=== PATIENT | female | born 1955 | race Caucasian/White ===

== ENCOUNTER 2022-05-03 14:51 | Outpatient (CLI) | payer OTHER, SELFPAY ==
--- NOTE | 2022-05-03 15:00 | CRLHL7_ITS ---
For Patients: As a result of the Cures Act, medical imaging exams and procedure reports are released immediately into your electronic medical record. You may view this report before your referring provider. If you have questions, please contact your health care provider. BILATERAL SCREENING MAMMOGRAM WITH COMPUTER-AIDED DETECTION AND TOMOSYNTHESIS TECHNIQUE: CC and MLO views were obtained. These mammographic images have been obtained using full-field digital technique. These mammographic images were interpreted with the benefit of computer-aided detection. Breast tomosynthesis was used in this interpretation. COMPARISON FILM: 05/01/21, 04/20/20, 02/10/19. FINDINGS: There are scattered areas of fibroglandular density. IMPRESSION: There is no radiographic evidence for malignancy. ASSESSMENT: BI-RADS Category 2: Benign RECOMMENDATION: Routine screening mammogram in 1 year. A lay language report of this examination will be provided to the patient. BOY HICKMAN M.D. Diagnostic Radiologist [email or web address] Transcribed: 05/04/2022, 1:[address]/Dictated by: Boy Hickman MD @ 05/04/2022 8:20:00 AM (Electronically Signed)
== END 2022-05-03 14:52 | disposition home or self-care (01) ==
LOC: MAMMO 14:51
PROVIDERS: PCP Internal Medicine; Visit Provider Internal Medicine
DX: Z12.31 Encounter for screening mammogram for malignant neoplasm of breast (principal)
CPT/HCPCS: 77063; 77067

== ENCOUNTER 2023-06-04 13:54 | Outpatient (CLI) | payer OTHER, SELFPAY ==
--- NOTE | 2023-06-04 14:00 | MM_ITS ---
Patient: HARSHAD GUTIÉRREZ Facility:?[facility] Patient ID:?[id number] Site Patient ID:?[id number]. Site :?[id number] Study:?XRay-Breast Bilateral 3D screening mammogram w/cad-06/04/2023 2:23:17 PM Ordering Physician:NATANAEL Final Report: BILATERAL SCREENING MAMMOGRAM WITH COMPUTER-AIDED DETECTION AND TOMOSYNTHESIS TECHNIQUE: CC and MLO views were obtained. These mammographic images have been obtained using full-field digital technique. These mammographic images were interpreted with the benefit of computer-aided detection. Breast Tomosynthesis was used in this interpretation. COMPARISON FILM: 05/03/22, 05/01/21, 04/20/20. FINDINGS: There are scattered areas of fibroglandular density. IMPRESSION: There is no radiographic evidence for malignancy. ASSESSMENT: BI-RADS Category 2: Benign RECOMMENDATION: Routine screening mammogram in 1 year. A lay language report of this examination will be provided to the patient. Boy Arambula M.D. Diagnostic Radiologist [email or web address] DSM/sp R& Transcribed: 4:38 p.m. SP/Dictated by: Boy Arambula MD @ 06/05/2023 11:38:00 AM Signed by:?Boy Arambula MD @06/06/2023 5:40:41 AM (Electronic Signature)
== END 2023-06-04 13:55 | disposition home or self-care (01) ==
LOC: MAMMO 13:55
PROVIDERS: PCP Family Medicine; Visit Provider Internal Medicine
DX: Z12.31 Encounter for screening mammogram for malignant neoplasm of breast (principal)
CPT/HCPCS: 77063; 77067

== ENCOUNTER 2023-11-22 08:33 | Outpatient (CLI) | payer OTHER, SELFPAY | END 2023-11-22 08:34 | disposition home or self-care (01) | LOC: NFLDREF 10:55 | PROVIDERS: PCP Internal Medicine; Referring Provider Internal Medicine; Visit Provider Internal Medicine | DX: Z13.1 Encounter for screening for diabetes mellitus (principal); Z13.6 Encounter for screening for cardiovascular disorders; Z13.29 Encounter for screening for other suspected endocrine disorder | CPT/HCPCS: 80061; 82947; 84443 ==

== ENCOUNTER 2023-12-18 10:53 | Outpatient (CLI) | payer OTHER, SELFPAY ==
--- OUTSIDE RECORDS SUMMARY | 2023-12-18 10:55 | XMS_ITS | Clinical Summary ---
Author Organization [facility] Address [address] [place] [id number] Care Team Providers Care Websphere Consultant Name Role Phone Unavailable Primary Care Provider Unavailabl e Source Comments Patient records contain information from all sites at [facility]. For routine questions regarding patient records, call [phone] during business hours, M-F 8:00 AM - 5:00 PM Central Time. Record requests for emergency care only can be directed to [phone] at any time.[facility] Allergies No known active allergies Medications Medication Sig Dispensed Refills Start Date End Date Status mupirocin (BACTROBAN) 2 % ointment APPLY TO WOUND ON FACE 1-2X DAILY AND COVER WITH BANDAGE UNTIL WELL HEALED 05/15/2022 Active traMADoL (ULTRAM) 50 mg tabletIndications:Acu te Pain Take 1 tablet (50 mg total) by mouth every 6 (six) hours as needed for pain Indications: Acute Pain. 5 tablet 06/07/2022 Active Hospital, Clinic, or Other Facility Administered Medication Ordered Dose Route Frequency Start Date End Date Status lidocaine-EPINEPHrine 1%-1:200,000 injection 2-50 mL (XYLOCAINE W/EPI)Indications:Melanoma Face (HCC) 2 - 50 mL inj As needed 06/07/2022 Active UEZagqackxn-ybsyelulr-CDECRVC rine 0.25%-1%-1:200,000 injection 2-25 mLIndications:Melanoma Face (HCC) 2 - 25 mL inj As needed 06/07/2022 Active Active Problems Problem Noted Date Diagnosed Date Melanoma Face 07/10/2022 Melanoma Malignant Other Parts Face 05/31/2022 Social History Tobacco Use Types Packs/Day Years Used Date Smoking Tobacco: Never Assessed Humiliation, Afraid, Rape, and Kick questionnair e Answer Date Recorded Within the last year, have y ou been afraid of your partner or ex-partner? No 05/29/2022 Within the last year, have y ou been humiliated or emotionally abused in other ways by your partner or ex-partner? No Within the last year, have y ou been kicked, hit, slapped, or otherwise physically hurt by your partner or ex-partner? No 05/29/2022 Within the last year, have y ou been raped or forced to have any kind of sexual activity by your partner or ex-partner? No 05/29/2022 Social Connection and Isolat ion Panel [NHANES] Answer Date Recorded In a typical week, how many times do you talk on the phone with family, friends, or neighbors? More than three times a week 05/29/2022 How often do you get togethe r with friends or relatives? More than three times a week 05/29/2022 How often do you attend [facility] or scientology services? More than 4 times per year 05/29/2022 Do you belong to any clubs o r organizations such as adventism groups, unions, fraternal or athletic groups, or school groups? Yes 05/29/2022 How often do you attend meet ings of the clubs or organizations you belong to? More than 4 times per year 05/29/2022 Are you , , di vorced, , never , or living with a partner? 05/29/2022 AUDIT-C Answer Date Recorded Q1: How often do you have a drink containing alc ohol? 2-4 times a month 05/29/2022 Q2: How many drinks containi ng alcohol do you have on a typical day when you are drinking? 1 or 2 05/29/2022 Q3: How often do you have si x or more drinks on one occasion? Never 05/29/2022 Overall Financial Resource Strain (CARDIA) Answe r Date Recorded How hard is it for you to pa y for the very basics like food, housing, medical care, and heating? Not hard at all 05/29/2022 [facility] of Occupat ional Health - Occupational Stress Questionnaire Answer Date Recorded Do you feel stress - tense, restless, nervous, or anxious, or unable to sleep at night because your mind is troubled all the time - these days? Only a little 05/29/2022 Exercise Vital Sign Answer Date Recorde d On average, how many days pe r week do you engage in moderate to strenuous exercise (like a brisk walk)? 6 days 05/29/2022 On average, how many minutes do you engage in exercise at this level? 30 min 05/29/2022 Hunger Vital Sign Answer Date Recorded Within the past 12 months, y ou worried that your food would run out before you got the money to buy more. Never true 05/30/19 Within the past 12 months, t he food you bought just didn't last and you didn't have money to get more. Never true 05/29/2022 PRAPARE - Transportation Answer Date Re corded In the past 12 months, has l ack of transportation kept you from medical appointments or from getting medications? No 09/2022 In the past 12 months, has l ack of transportation kept you from meetings, work, or from getting things needed for daily living? No 05/29/2022 Housing Stability Vital Sign Answer Trevor e Recorded In the last 12 months, was t here a time when you were not able to pay the mortgage or rent on time? No 05/29/2022 In the last 12 months, how many places have you lived? 1 05/29/2022 In the last 12 months, was t here a time when you did not have a steady place to sleep or slept in a usp (including now)? No 05/29/2022 Nutrition Answer Date Recorded Nutrition: EVOO Fat Source Yes 05/29 On average, how many serving s of fruits and vegetables do you eat per day (serving size is equal to 1 cup or approximately the size of a tennis ball)? 4-5 05/29/2022 Dental Answer Date Recorded Dental: Regular Dentist Yes 05/30/19 Employment Answer Date Recorded Employment status Employed and actively working without restrictions 05/29/2022 Education Answer Date Recorded What is the highest level of school you have completed or the highest degree you have received? 12th grade 05/29/2022 Sex and Gender Information Value Date Recorded Sex Assigned at Female 05/29/2022 11:38 AM COUNSELING SERVICES MANAGER Gender Identity Female 05/29/2022 11:38 AM COUNSELING SERVICES MANAGER Sexual Orientation Straight 05/29/2022 11 :38 AM COUNSELING SERVICES MANAGER Last Filed Vital Signs Vital Sign Reading Time Taken Comments Blood Pressure 142/81 06/07/2022 11:00 AM CDT Pulse 73 06/07/2022 11:00 AM CDT Temperature 36.6 ??C (97.9 ??F) 06/01/2022 6:10 PM CS T Respiratory Rate 18 06/01/2022 7:18 AM COUNSELING SERVICES MANAGER Oxygen Saturation 96% 06/01/2022 6:10 PM COUNSELING SERVICES MANAGER Inhaled Oxygen Concentration - - Weight 85.8 kg (189 lb 2.5 oz) 06/01/2022 7:18 A M COUNSELING SERVICES MANAGER Height 162.6 cm (5' 4) 06/01/2022 7:18 AM COUNSELING SERVICES MANAGER Body Mass Index 32.47 06/01/2022 7:18 AM COUNSELING SERVICES MANAGER Plan of Treatment Health Maintenance Due Date Last Done Comments Bone Density Scan (Osteoporo sis Screen) 1956 CT Colonography 1955 Cologuard 1955 Colonoscopy 1956 Colorectal Cancer Screening 1955 FIT 1956 Fasting Glucose for Diabetes Screening 1955 Hepatitis C Screening 1955 Mammogram 1955 Depression Screening (Annual PHQ-2) 03/25/2023 Fall Risk Screen (Annual) 03/25/2023 COVID-19 Vaccine ( - 2023-2 5 season) 2023 01/29/2023, 09/05/2021, 02/14/2021, Additional history exists Influenza Vaccine (#1) 2023 , 01/18/2022, 12/29/2020, Additional history exists DTaP,Tdap,and Td Vaccines (3 - Td or Tdap) 09/05/2031 09/04/2021, 11/08/2011, 10/16/2006 Zoster Vaccines Completed 10/17/2018, 05/24, 12/28/2011 Pneumococcal vaccine (65+ years) Completed 01/19/20
--- OUTSIDE RECORDS SUMMARY | 2023-12-18 10:55 | XMS_ITS | Referral Summary ---
Author Organization [facility] Address [address] [place] [address] Care Team Providers Care Asset Protection Representative Name Role Phone Unavailable Primary Care Provider Unavailabl e Source Comments Patient records contain information from all sites at [facility]. For routine questions regarding patient records, call [phone] during business hours, M-F 8:00 AM - 5:00 PM Central Time. Record requests for emergency care only can be directed to [phone] at any time.[facility] Allergies No known active allergies Medications [...] 50 mL inj As needed 06/07/2022 Active VNSigrjybss-bfmozvfjm-WVFCWMZ rine 0.25%-1%-1:200,000 injection 2-25 mLIndications:Melanoma Face (HCC) [...] week 05/29/2022 How often do you attend [facility] or restoration services? More than 4 times per year 05/29/2022 Do you belong to any clubs o r organizations such as zoroastrianism groups, unions, fraternal or athletic groups, or [...] and heating? Not hard at all 05/29/2022 [facility] of Occupat ional Health - Occupational Stress [...] place to sleep or slept in a fdc (including now)? No 05/29/2022 Nutrition Answer Date [...] Sex Assigned at Female 05/29/2022 11:38 AM DEPUTY SHERIFF/INVESTIGATOR Gender Identity Female 05/29/2022 11:38 AM DEPUTY SHERIFF/INVESTIGATOR Sexual Orientation Straight 05/29/2022 11 :38 AM DEPUTY SHERIFF/INVESTIGATOR Last Filed Vital Signs Vital Sign Reading Time Taken Comments Blood Pressure 142/81 06/07/2022 11:00 AM CDT Pulse 73 06/07/2022 11:00 AM CDT Temperature 36.6 ??C (97.9 ??F) 06/01/2022 6:10 PM CS T Respiratory Rate 18 06/01/2022 7:18 AM DEPUTY SHERIFF/INVESTIGATOR Oxygen Saturation 96% 06/01/2022 6:10 PM DEPUTY SHERIFF/INVESTIGATOR Inhaled Oxygen Concentration - - Weight 85.8 kg (189 lb 2.5 oz) 06/01/2022 7:18 A M DEPUTY SHERIFF/INVESTIGATOR Height 162.6 cm (5' 4) 06/01/2022 7:18 AM DEPUTY SHERIFF/INVESTIGATOR Body Mass Index 32.47 06/01/2022 7:18 AM DEPUTY SHERIFF/INVESTIGATOR Plan of Treatment Not on file
--- OUTSIDE RECORDS SUMMARY | 2023-12-18 10:55 | XMS_ITS ---
Author Organization [facility] Address [address] [place] [address] Care Team Providers Care Taker Off Name Role Phone Unavailable Unavailable Unavailable Surgery Details Not on file Complications Check Surgery Details section. Procedure Estimated Blood Loss Check Surgery Details section. Procedure Findings Check Surgery Details section. Procedure Specimens Taken Check Surgery Details section.
--- NOTE | 2023-12-18 11:00 | CRLHL7_ITS ---
For Patients: As a result of the Century Cures Act, medical imaging exams and procedure reports are released immediately into your electronic medical record. You may view this report before your referring provider. If you have questions, please contact your health care provider. DXA BONE MINERAL DENSITY STUDY Reason for exam: Asymptomatic menopausal state. Current height (in): 64. Weight (lb): 180. Menopause age: 56. Ethnicity: White. 1. Have you had a previous hip or vertebral fracture? No. 2. Have you had any fractures during your adult life which did not result from significant trauma (e.g., auto accident)? No. 3. Did either of your parents have a hip fracture? No. 4. Do you smoke? No. 5. Have you ever taken Glucocorticoids? No. 6. Do you have rheumatoid arthritis? No. 7. Do you have secondary osteoporosis? No. 8. Do you drink 3 or more alcoholic drinks per day? No. 9. Are you being treated for osteoporosis? No. 10. Have you ever taken any of the following medications: Actonel, Evista, Fosamax, Miacalcin, Reclast, Boniva, Forteo, HRT (i.e. estrogen/hormone therapy), Protelos, Prolia, Vitamin D, Calcium, other ??? please specify. ANSWER: Yes, HRT (i.e. estrogen/hormone therapy). 11. Do you have any of the following medical conditions: Anorexia or bulimia, asthma or emphysema, end stage renal disease, hyperparathyroidism, any seizure disorders, cancer, inflammatory bowel diseases, hysterectomy, other ??? please specify. ANSWER: No. 12. What was your maximum height (inches)? 64. 13. Do you perform weight bearing exercise regularly? Yes. 14. Do you regularly consume dairy products? Yes. 15. Do you drink caffeinated beverages? Yes. 16. At what age did your period start? 15. 17. Are you premenopausal? No. 18. How many full term pregnancies have you had? 3. 19. Have you ever missed your period for more than 6 months in a row (not including or menopause)? No. TECHNIQUE: Bone mineral density study was performed using the [employer]. FINDINGS: The results of the study expressed as bone mineral density (BMD) are as follows: Lumbar spine L1 to L4: BMD: 1.002 g/cm2. T-score: -0.4. Z-score: 1.5. Neck Left: BMD: 0.778 g/cm2. T-score: -0.6. Z-score: 1.0. Right: BMD: 0.728 g/cm2. T-score: -1.1. Z-score: 0.5. Total Left: BMD: 0.854 g/cm2. T-score: -0.7. Z-score: 0.6. Right: BMD: 0.906 g/cm2. T-score: -0.3. Z-score: 1.0. IMPRESSION: Osteopenia. FRAX 10-year Fracture Risk Major Osteoporotic Fracture: 8.2 percent Hip Fracture: 0.7 percent Reported Risk Factors: [place] () Neck BMD=0.728, BMI=30.9 GERALDO CONSTANTINO M.D. [email or web address] bM/Dictated by: Geraldo Constantino MD @ 12/19/2023 1:36:00 PM (Electronically Signed)
== END 2023-12-18 10:54 | disposition home or self-care (01) ==
LOC: RAD 10:54
PROVIDERS: PCP Internal Medicine; Visit Provider Internal Medicine
DX: Z78.0 Asymptomatic menopausal state (principal); M85.89 Other specified disorders of bone density and structure, multiple sites
CPT/HCPCS: 77080

== ENCOUNTER 2024-02-24 08:43 | Outpatient (CLI) | payer OTHER, SELFPAY ==
--- OUTSIDE RECORDS SUMMARY | 2024-02-25 19:57 | XMS_ITS | Referral Summary ---
Author Organization [facility] Address [address] [place] [address] Care Team Providers Care Rippler Name Role Phone Unavailable Primary Care Provider Unavailabl e Source Comments Patient records contain information from all sites at [facility]. For routine questions regarding patient records, call [phone] during business hours, M-F 8:00 AM - 5:00 PM Central Time. Record requests for emergency care only can be directed to [phone] at any time.[facility] Allergies No known active allergies Medications mupirocin (BACTROBAN) 2 % ointment APPLY TO WOUND ON FACE 1-2X DAILY AND COVER WITH BANDAGE UNTIL WELL HEALED 05/15/2022 Active traMADoL (ULTRAM) 50 mg tabletIndicatio ns:Acute Pain Take 1 tablet (50 mg total) by mouth every 6 (six) hours as needed for pain Indications: Acute Pain. 5 tablet 06/07/2022 Active Hospital, Clinic, or Other Facility Administered Medication Ordered Dose Route Frequency Start Date End Date Status lidocaine-EPINEPHrine 1%-1:200,000 injection 2-50 mL (XYLOCAINE W/EPI)Indications:Melanoma Face (HCC) 2 - 50 mL inj As needed 06/07/2022 Active JMCmlplrrcg-yoibxcyzt-URJZTIN rine 0.25%-1%-1:200,000 injection 2-25 mLIndications:Melanoma Face (HCC) [...] week 05/29/2022 How often do you attend [facility] or sikh services? More than 4 times per year 05/29/2022 Do you belong to any clubs o r organizations such as mormon groups, unions, fraternal or athletic groups, or [...] and heating? Not hard at all 05/29/2022 [facility] of Occupat ional Health - Occupational Stress [...] place to sleep or slept in a half-way (including now)? No 05/29/2022 Nutrition Answer Date Recorded On average, how many serving s of [...] degree you have received? 12th grade 05/29/2022 Comments No Sex and Gender Information Value Date Recorded Sex Assigned at Female 05/29/2022 11:38 AM BOIL OFF MACHINE OPERATOR CLOTH Legal Sex Female 8:55 AM CDT Gender Identity Female 05/29/2022 11:38 AM BOIL OFF MACHINE OPERATOR CLOTH Sexual Orientation Straight 05/29/2022 11 :38 AM BOIL OFF MACHINE OPERATOR CLOTH Last Filed Vital Signs Vital Sign Reading Time Taken Comments Blood Pressure 142/81 06/07/2022 11:00 AM CDT Pulse 73 06/07/2022 11:00 AM CDT Temperature 36.6 C (97.9 F) 06/01/2022 6:10 PM BOIL OFF MACHINE OPERATOR CLOTH Respiratory Rate 18 06/01/2022 7:18 AM BOIL OFF MACHINE OPERATOR CLOTH Oxygen Saturation 96% 06/01/2022 6:10 PM BOIL OFF MACHINE OPERATOR CLOTH Inhaled Oxygen Concentration - - Weight 85.8 kg (189 lb 2.5 oz) 06/01/2022 7:18 A M BOIL OFF MACHINE OPERATOR CLOTH Height 162.6 cm (5' 4) 06/01/2022 7:18 AM BOIL OFF MACHINE OPERATOR CLOTH Body Mass Index 32.47 06/01/2022 7:18 AM BOIL OFF MACHINE OPERATOR CLOTH Plan of Treatment Not on file Insurance [facility]
--- OUTSIDE RECORDS SUMMARY | 2024-02-25 19:57 | XMS_ITS ---
Author Organization [facility] Address [address] [place] [id number] Care Team Providers Care Silo Filler Name Role Phone Unavailable Unavailable Unavailable Surgery Details Not on file Complications Check Surgery Details section. Procedure Estimated Blood Loss Check Surgery Details section. Procedure Findings Check Surgery Details section. Procedure Specimens Taken Check Surgery Details section.
--- OUTSIDE RECORDS SUMMARY | 2024-02-25 19:57 | XMS_ITS | Clinical Summary ---
Author Organization [facility] Address [address] [place] [address] Care Team Providers Care Lokie Engineer Name Role Phone Unavailable Primary Care Provider Unavailabl e Source Comments Patient records contain information from all sites at [facility]. For routine questions regarding patient records, call [phone] during business hours, M-F 8:00 AM - 5:00 PM Central Time. Record requests for emergency care only can be directed to [phone] at any time.[facility] Allergies No known active allergies Medications mupirocin [...] 50 mL inj As needed 06/07/2022 Active XTAsivcwzco-hthdtxhpk-TFLWWKW rine 0.25%-1%-1:200,000 injection 2-25 mLIndications:Melanoma Face (HCC) [...] week 05/29/2022 How often do you attend [facility] or holiness services? More than 4 times per year 05/29/2022 Do you belong to any clubs o r organizations such as jain groups, unions, fraternal or athletic groups, or [...] and heating? Not hard at all 05/29/2022 [facility] of Occupat ional Health - Occupational Stress [...] place to sleep or slept in a chcf (including now)? No 05/29/2022 Nutrition Answer Date [...] Sex Assigned at Female 05/29/2022 11:38 AM ACCREDITATION MANAGER Legal Sex Female 8:55 AM CDT Gender Identity Female 05/29/2022 11:38 AM ACCREDITATION MANAGER Sexual Orientation Straight 05/29/2022 11 :38 AM ACCREDITATION MANAGER Last Filed Vital Signs Vital Sign Reading Time Taken Comments Blood Pressure 142/81 06/07/2022 11:00 AM CDT Pulse 73 06/07/2022 11:00 AM CDT Temperature 36.6 C (97.9 F) 06/01/2022 6:10 PM ACCREDITATION MANAGER Respiratory Rate 18 06/01/2022 7:18 AM ACCREDITATION MANAGER Oxygen Saturation 96% 06/01/2022 6:10 PM ACCREDITATION MANAGER Inhaled Oxygen Concentration - - Weight 85.8 kg (189 lb 2.5 oz) 06/01/2022 7:18 A M ACCREDITATION MANAGER Height 162.6 cm (5' 4) 06/01/2022 7:18 AM ACCREDITATION MANAGER Body Mass Index 32.47 06/01/2022 7:18 AM ACCREDITATION MANAGER Plan of Treatment Health Maintenance Due Date Last Done Comments Bone Density Scan (Osteoporosis Screen) 1956 CT Colonography 1955 Colonoscopy 1955 FIT 1956 Fasting Glucose for Diabetes Screening 1955 Hepatitis C Screening 1955 Mammogram 1955 Depression Screening (Annual PHQ-2) 03/25/2023 Fall Risk Screen (Annual) 03/25/2023 COVID-19 Vaccine ( season) 2023 01/29/2023, 09/05/2021, 02/14/2021, Additional history exists Influenza Vaccine (#1) 2023 , 01/18/2022, 12/29/2020, Additional history exists Cologuard 12/22/2026 12/23/2023 Colorectal Cancer Screening 12/22/2026 DTaP,Tdap,and Td Vaccines (3 - Td or Tdap) 09/05/2031 09/04/2021, 11/08/2011, 10/16/2006 Zoster Vaccines Completed 10/17/2018, 05/24, 12/28/2011 Pneumococcal vaccine (65+ years) Completed 01/18/2022 IPV Vaccines Aged Out No longer eligi ble based on patient's age to complete this topic Insurance [facility]
== END 2024-02-24 08:44 | disposition home or self-care (01) ==
PROVIDERS: PCP Internal Medicine; Referring Provider Internal Medicine; Visit Provider Internal Medicine
DX: E78.5 Hyperlipidemia, unspecified (principal)
CPT/HCPCS: 80061

== ENCOUNTER 2024-06-18 15:13 | Outpatient (CLI) | payer MEDICARE, BC, SELFPAY ==
--- NOTE | 2024-06-18 15:20 | CRLHL7_ITS ---
For Patients: As a result of the Century Cures Act, medical imaging exams and procedure reports are released immediately into your electronic medical record. You may view this report before your referring provider. If you have questions, please contact your health care provider. BILATERAL SCREENING MAMMOGRAM WITH COMPUTER-AIDED DETECTION AND TOMOSYNTHESIS TECHNIQUE: CC and MLO views were obtained. These mammographic images have been obtained using full-field digital technique. These mammographic images were interpreted with the benefit of computer-aided detection. Breast Tomosynthesis was used in this interpretation. COMPARISON FILM: 06/04/23, 05/03/22, 05/01/21. FINDINGS: There are scattered areas of fibroglandular density. IMPRESSION: There is no radiographic evidence for malignancy. ASSESSMENT: BI-RADS Category 1: Negative RECOMMENDATION: Routine screening mammogram in 1 year. A lay language report of this examination will be provided to the patient. Boy Arambula M.D. Diagnostic Radiologist [email or web address] SP/Dictated by: Boy Arambula MD @ 06/25/2024 9:32:00 AM (Electronically Signed)
== END 2024-06-18 15:14 | disposition home or self-care (01) ==
PROVIDERS: PCP Internal Medicine; Visit Provider Internal Medicine
DX: Z12.31 Encounter for screening mammogram for malignant neoplasm of breast (principal)
CPT/HCPCS: 77063; 77067

== ENCOUNTER 2024-07-16 14:19 | Outpatient (CLI) | payer MEDICARE, BC, SELFPAY | END 2024-07-16 14:20 | disposition home or self-care (01) | LOC: NFLDREF 07-21 21:42 | PROVIDERS: PCP Internal Medicine; Referring Provider Internal Medicine; Visit Provider Family Medicine | DX: Z13.810 Encounter for screening for upper gastrointestinal disorder (principal); Z83.79 Family history of other diseases of the digestive system | CPT/HCPCS: 82784; 86258; 86364 ==

== ENCOUNTER 2024-11-30 09:31 | Outpatient (CLI) | payer MEDICARE, BC, SELFPAY | END 2024-11-30 09:32 | disposition home or self-care (01) | LOC: NFLDREF 12-03 16:36 | PROVIDERS: PCP Internal Medicine; Referring Provider Internal Medicine; Visit Provider Internal Medicine | DX: E78.5 Hyperlipidemia, unspecified (principal) | CPT/HCPCS: 80061 ==